=== PATIENT | female | born 2000 | race Hispanic/Latino ===

== ENCOUNTER 2025-06-02 03:53 | Inpatient (IN) | payer BC ==
[2025-06-02] MEDS ORDERED: Boostrix 0.5 ML (Tdap) VIAL (>/=7 yrs of age) ONE (04:56)
[2025-06-02 05:23] LABS: #Basophils 0.05 10x3/uL (0.0-0.2); #Eosinophils Less than 0.03 10x3/uL (0.0-0.7); #Monocytes 0.25 10x3/uL (0.11-0.59); #Neutrophils 6.09 10x3/uL (1.40-6.50); %Basophils 0.6 % (0.0-1.0); %Eosinophils 0.0 % (0.0-10.0); %Lymphocytes 17.3 % (21.0-51.0); %Monocytes 3.2 % (0.0-10.0); %Neutrophils 77.8 % (42.0-75.0); Hematocrit 37.2 % (36.0-47.0); Hemoglobin 12.1 g/dL (12.0-16.0); Mean Corpuscular Hemoglobin 31.2 pg (27.0-31.0); Mean Corpuscular Volume 95.9 fL (78.0-98.0); Platelet Count 288 10x3/uL (130-400); Red Blood Cell (RBC) Count 3.88 mill/uL (4.20-5.40); White Blood Cell (WBC) Count 7.84 10x3/uL (4.8-10.8)
[2025-06-02 05:37] LABS: INR-International Normal Ratio 1.2; PTT 28.9 sec (22.9-36.1); Prothrombin Time 15.2 sec (12.0-14.7)
[2025-06-02 05:38] LABS: Lipase 28 U/L (8-78)
[2025-06-02 05:40] LABS: ALT (SGPT) 34 U/L (Less than 34); AST (SGOT) 60 U/L (11-34); Acetaminophen Less than 10 mcg/mL (Less than 10); Albumin 3.9 g/dL (3.1-4.5); Alkaline Phosphatase 85 U/L (40-110); Anion Gap 15 mmol/L (10-20); BUN (Urea Nitrogen) 12 mg/dL (7.0-18.7); Bilirubin, Total 0.2 mg/dL (0.3-1.2); CK (CPK) 245 U/L (29-168); Calc. Creatinine Clearance 0 mL/min (70-130); Calcium 8.2 mg/dL (7.8-10.44); Carbon Dioxide 20 mmol/L (22-29); Chloride 114 mmol/L (98-107); Globulin 2.3 g/dL (2.4-3.5); Glucose 101 mg/dL (70-105); Potassium 3.6 mmol/L (3.5-5.1); Salicylate Less than 8.0 mg/dL (Less than 8.0); Sodium 145 mmol/L (136-145)
[2025-06-02] MEDS ORDERED: Dextrose 50% Abboject 50 ML SYRINGE SLOW IVP PRN (05:44)
[2025-06-02] MEDS ORDERED: Glucagon 1 MG/ML KIT IM PRN (05:44)
[2025-06-02] MEDS ORDERED: Acetaminophen 325 MG TAB PO PRN (05:44)
[2025-06-02 06:42] LABS: BHCG - Serum Negative (NEGATIVE); Pregs Control Background? CLEAR/WHITE (CLR/WHITE); Pregs Control Bar Appear? YES (CONTROL BAR)
[2025-06-02] MEDS ORDERED: Ketorolac Tromethamine 30 MG (1 mL) VIAL ONE (08:28)
[2025-06-02 11:05] VITALS: TEMP 98.5
[2025-06-02 11:07] VITALS: BMI 25.3
[2025-06-02] MEDS ORDERED: Iopamidol 370 76% 100 ML VIAL ONE (11:56)
[2025-06-02] MEDS: Ondansetron PF 4 MG/2 ML Vial IVP PRN (13:50)
[2025-06-02 16:05] VITALS: BP 120/77
== END 2025-06-02 18:00 | disposition home or self-care (01) | DRG 200 ==
LOC: ERS 03:53 → EDBD 03:53 → ERHOLD 05:49 → SURG A 09:29
PROVIDERS: ADMIT Surgery; ATTEND Surgery
DX: S27.0XXA Traumatic pneumothorax, initial encounter (principal); S12.000A Unspecified displaced fracture of first cervical vertebra, initial encounter for closed fracture; S12.600A Unspecified displaced fracture of seventh cervical vertebra, initial encounter for closed fracture; V49.3XXA Car occupant (driver) (passenger) injured in unspecified nontraffic accident, initial encounter; F31.9 Bipolar disorder, unspecified; F12.10 Cannabis abuse, uncomplicated; F17.210 Nicotine dependence, cigarettes, uncomplicated
CPT/HCPCS: 36415; 70450; 70498; 71045; 71260; 72125; 74177; 80053; 80307; 82550; 83605; 83690; 84484; 84703; 85025; 85610; 85730; 86850; 86900; 86901; 90471; 90715; 93005; 96374; 96375; G0390; J1885; J2270; J2405; J7030; Q9967

== ENCOUNTER 2025-06-15 16:27 | Outpatient (CLI) | payer BC | END 2025-06-15 16:28 | disposition home or self-care (01) | LOC: SCSRAD 16:27 | PROVIDERS: ATTEND Surgery | DX: S12.041D Nondisplaced lateral mass fracture of first cervical vertebra, subsequent encounter for fracture with routine healing (principal) | CPT/HCPCS: 72040 ==

== ENCOUNTER 2025-07-25 15:50 | Outpatient (CLI) | payer BC | END 2025-07-25 15:51 | disposition home or self-care (01) | LOC: SCSRAD 15:50 | PROVIDERS: ATTEND Physician Assistant | DX: S12.041D Nondisplaced lateral mass fracture of first cervical vertebra, subsequent encounter for fracture with routine healing (principal); M47.812 Spondylosis without myelopathy or radiculopathy, cervical region; M40.50 Lordosis, unspecified, site unspecified | CPT/HCPCS: 72040 ==